=== PATIENT | male | born 1940 | race Caucasian/White ===

== ENCOUNTER 2021-03-14 13:07 | Emergency (ER) | payer MEDICARE ==
[~2021-03-14] VITALS: Ht 175.3 cm; Wt 100.0 kg
[2021-03-14 14:14] LABS: HEMATOCRIT 40.6 % (39.0-50.0); HEMOGLOBIN 13.2 g/dl (14.0-18.0); IMMATURE GRANULOCYTES 0.3 % (0.0-5.0); MEAN CELL VOLUME 96.2 fL CALC (80.0-100.0); MEAN CORPUSCULAR HGB 31.3 pG CALC (26.0-32.0); MEAN CORPUSCULAR HGB CONC 32.5 g/dL CAL (32.0-36.0); NEUT# 10.01 thou/uL (1.82-7.42); RED BLOOD COUNT 4.22 mill/uL (4.70-6.10); RED CELL DISTRI WIDTH 12.5 % (11.5-15.5)
[2021-03-14 14:33] LABS: ALBUMIN 4.2 g/dL (3.2-5.0); BILIRUBIN, TOTAL 0.6 mg/dL (0.0-1.4); CREATININE 3.2 mg/dL (0.7-1.3); TOTAL PROTEIN 7.3 g/dL (6.3-8.2)
[2021-03-14 14:58] VITALS: BP 200/85
== END 2021-03-14 15:00 | disposition home or self-care (01) | DRG 392 ==
LOC: ED 13:07
PROVIDERS: Family Medicine
DX: K59.00 Constipation, unspecified (principal); I10 Essential (primary) hypertension; I25.10 Atherosclerotic heart disease of native coronary artery without angina pectoris

== ENCOUNTER 2023-05-11 11:30 | Emergency (ER) | payer MEDICARE ==
[~2023-05-11] VITALS: Ht 175.3 cm; Wt 90.7 kg
[2023-05-11] VITALS (8 sets, daily range): BP systolic 127–150; BP diastolic 52–77
[~2023-05-11 11:30] MED LIST: AMLODIPINE BESY10 MG PO; ATORVASTATIN CA40 MG PO; BACLOFEN5 MG PO; CARVEDILOL6.25 MG PO; CLOPIDOGREL75 MG PO; GLIMEPIRIDE4 MG PO; ISOSORB MONO30 MG PO; OZEMPIC2 MG; PREGABALIN100 MG PO; PROTONIX40 M2 PO
[2023-05-11 14:08] LABS: BASO% 0.6 % (0-3); EOS% 1.8 % (0-8); HEMATOCRIT 37.2 % (39.0-50.0); HEMOGLOBIN 11.7 g/dl (14.0-18.0); IMMATURE GRANULOCYTES 0.6 % (0.0-5.0); LYMPH% 20.8 % (15-41); MEAN CELL VOLUME 97.6 fL CALC (80.0-100.0); MEAN CORPUSCULAR HGB 30.7 pG CALC (26.0-32.0); MEAN CORPUSCULAR HGB CONC 31.5 g/dL CAL (32.0-36.0); MONO% 9.2 % (2-13); NEUT# 3.41 thou/uL (1.82-7.42); RED BLOOD COUNT 3.81 mill/uL (4.70-6.10); RED CELL DISTRI WIDTH 15.1 % (11.5-15.5)
[2023-05-11 14:22] LABS: ALBUMIN 3.7 g/dL (3.2-5.0); BILIRUBIN, TOTAL 0.4 mg/dL (0.2-1.3); CREATININE 3.7 mg/dL (0.7-1.3); TOTAL PROTEIN 6.3 g/dL (6.3-8.2)
[2023-05-11 14:23] LABS: POTASSIUM 5.2 mmol/l (3.5-5.1)
== END 2023-05-11 16:09 | disposition home or self-care (01) ==
LOC: ED 11:30
PROVIDERS: Family Medicine
DX: R61 Generalized hyperhidrosis (principal); I12.9 Hypertensive chronic kidney disease with stage 1 through stage 4 chronic kidney disease, or unspecified chronic kidney disease; E11.22 Type 2 diabetes mellitus with diabetic chronic kidney disease; N18.9 Chronic kidney disease, unspecified; I25.10 Atherosclerotic heart disease of native coronary artery without angina pectoris; F17.220 Nicotine dependence, chewing tobacco, uncomplicated; Z95.5 Presence of coronary angioplasty implant and graft; Z79.84 Long term (current) use of oral hypoglycemic drugs; Z20.822 Contact with and (suspected) exposure to COVID-19

== ENCOUNTER 2023-09-07 12:39 | Emergency (ER) | payer MEDICARE ==
[2023-09-07] VITALS (19 sets, daily range): BP systolic 84–150; BP diastolic 46–92
[~2023-09-07] VITALS: Ht 175.3 cm; Wt 97.0 kg
[2023-09-07] MEDS ORDERED: SODIUM CHLORIDE 0.9% 1,000 ML IV ONE (12:50)
[2023-09-07 13:18] LABS: BASO% 0.4 % (0-3); EOS% 1.3 % (0-8); IMMATURE GRANULOCYTES 0.6 % (0.0-5.0); LYMPH% 12.7 % (15-41); MEAN CELL VOLUME 96.6 fL CALC (80.0-100.0); MEAN CORPUSCULAR HGB 30.6 pG CALC (26.0-32.0); MEAN CORPUSCULAR HGB CONC 31.6 g/dL CAL (32.0-36.0); MONO% 10.8 % (2-13); NEUT# 5.07 thou/uL (1.82-7.42); NEUT% 74.2 % (42-76); RED BLOOD COUNT 3.27 mill/uL (4.70-6.10); RED CELL DISTRI WIDTH 14.6 % (11.5-15.5)
[2023-09-07 13:21] LABS: HEMATOCRIT 31.6 % (39.0-50.0)
[2023-09-07 13:32] LABS: ALBUMIN 3.8 g/dL (3.2-5.0); BILIRUBIN, TOTAL 0.5 mg/dL (0.2-1.3); POTASSIUM 3.7 mmol/l (3.5-5.1); TOTAL PROTEIN 7.3 g/dL (6.3-8.2)
[2023-09-07 13:39] LABS: CREATININE 5.2 mg/dL (0.7-1.3)
[2023-09-07 13:40] LABS: URINE BILIRUBIN - DIPSTICK Negative (NEGATIVE); URINE BLOOD DIPSTICK Moderate (NEGATIVE); URINE GLUCOSE - DIPSTICK Negative (NEGATIVE); URINE KETONE Negative (NEGATIVE); URINE NITRITE - DIPSTICK Negative (Negative); URINE PH 6.5 (4.5-8.0); URINE PROTEIN - DIPSTICK >=300 mg/dL (NEG-TRACE); URINE UROBILINOGEN - DIPSTICK 0.2 E.U./dL (0.2)
[2023-09-07 13:41] LABS: URINE COLOR Yellow
[2023-09-07 13:42] LABS: URINE BACTERIA MANY hpf; URINE EPITHELIAL CELLS MODERATE EPI/hpf (0-FEW); URINE LEUK ESTERASE Large (NEGATIVE); URINE WBC 50-100 WBC/hpf (0-5)
[2023-09-07] MEDS ORDERED: cefTRIAXone SODIUM 2 GM in SODIUM CHLORIDE 0.9% 100 ML IV ONE (13:50)
[2023-09-07] MEDS ORDERED: OMNICEF300 MG PO (14:42)
--- NOTE | 2023-09-09 10:34 | NUR ---
PRELIMINARY BLOOD CULTURE SHOWS GRAM POSITIVE COCCI IN 1/3 VIALS. PER LAB THIS IS LIKELY CONTAMINATION. RESULTS REPORTED TO DR DE SANTIAGO. NO NEW ORDERS. WILL FOLLOW UP WHEN FINAL RESULTS AVAILABLE.
--- NOTE | 2023-09-10 07:07 | NUR ---
Blood culture results showing Staph capitis in 1/3 bottles, most likely a skin contaminant. No follow-up warranted at this time.
== END 2023-09-07 17:47 | disposition home or self-care (01) ==
LOC: ED 12:39
PROVIDERS: Family Medicine
DX: N39.0 Urinary tract infection, site not specified (principal); B96.89 Other specified bacterial agents as the cause of diseases classified elsewhere; S51.012A Laceration without foreign body of left elbow, initial encounter; I12.0 Hypertensive chronic kidney disease with stage 5 chronic kidney disease or end stage renal disease; E11.22 Type 2 diabetes mellitus with diabetic chronic kidney disease; N18.5 Chronic kidney disease, stage 5; I25.10 Atherosclerotic heart disease of native coronary artery without angina pectoris; W19.XXXA Unspecified fall, initial encounter; Y92.009 Unspecified place in unspecified non-institutional (private) residence as the place of occurrence of the external cause; Z95.5 Presence of coronary angioplasty implant and graft; Z96.611 Presence of right artificial shoulder joint; Z79.84 Long term (current) use of oral hypoglycemic drugs; Z72.0 Tobacco use